=== PATIENT | male | born 1950 | race Caucasian/White ===

== ENCOUNTER → 2021-01-11 12:38 | Outpatient (BNVA) | payer MEDICARE, SELFPAY | PROVIDERS: Visit Provider Orthopaedic Surgery | DX: M17.11 Unilateral primary osteoarthritis, right knee (principal) | CPT/HCPCS: 99212 ==

== ENCOUNTER 2021-01-17 06:11 | Inpatient (IN) | payer MEDICARE, SELFPAY ==
[2021-01-11 14:10] VITALS: BP 147/73; PULSE 52; RESP 20; O2SAT 98; BMI 24.3
[2021-01-12 09:34] LABS: MRSA Nasal PCR NEGATIVE (Negative); SA Nasal PCR NEGATIVE (Negative)
--- NOTE | 2021-01-16 09:59 | P.CONAN_ITS ---
Documented by User: Natividad Carbajal 01/16/21 10:02 HPI - Anesthesia Eval Consult details Narrative: 70yo M for Left Knee Replacement Total PCP cleared [facility] Active Problems Active Problems: All Active Problems (Updated 01/11/21 @ 17:33 by Bentley Washington PA-C) Osteoarthritis of right knee (Acute) Past Medical History Medical History History of fracture of rib HTN (hypertension) Hyperlipidemia Tick bite Surgical History Surgical History History of bronchoscopy History of recent maxillofacial surgery History of right inguinal hernia repair Hx of colonoscopy Social History Social History Household Members Other:: Mother - Age 90 Are you a primary physician primary care sports medicine to a significant other at home: No Do you presently have visiting nurse or other home services: No Smoking Status: Former smoker Smoking Quit Date: 8 yrs ago Use of substances other than those prescribed or required for medical reasons: No Have you been hit, kicked, punched, or otherwise hurt by someone within the past year? If so, by whom?: No Advance Directives: No Advance Directives Information Provided: No Advance Directives on File: No Recently lost weight without trying: No Meds Allergies Allergy/AdvReac Type Severity Reaction Status Date / Time No Known Allergies Allergy Verified 01/11/21 07:38 Home Medications Medication Instructions Recorded Confirmed Last Taken Type atorvastatin 0.5 tab PO BEDTIME 01/11/21 01/11/21 01/16/21 History lisinopril 10 See Rx Instructions PO BEDTIME 01/11/21 01/11/21 01/16/21 History mg-hydrochlorothiazide 12.5 mg tablet Exam Exam Date and Time: January 16, 2021 0959 Height,Weight and Vital Signs: Height 5 ft 9 in Weight 74.843 kg Last Vital Signs Pulse 52 01/11/21 14:10 Resp 20 01/11/21 14:10 BP 147/73 H 01/11/21 14:10 Pulse Ox 98 01/11/21 14:10 Pertinent Lab Results Pertinent Lab Results: Laboratory Tests 01/11/21 Unknown Nasal Screen MRSA (PCR) NEGATIVE Nasal S. aureus Screen NEGATIVE Nasal MRSA/S.aureus Interp SEE NOTE 12/2020 BMP and CBC wnl per PCP clearance note Narrative Narrative: EKG 12/2020 SB @ 46, otherwise normal Assessment and Plan Assessment Anesthesia Assessment: Chart Reviewed Documented by User: Jimy Kunz MD 01/17/21 08:20 HPI - Anesthesia Eval Consult details Narrative: Episode of vasovagal epidsode with momentary LOC and hypotension. Treated with IVF. Will proceed with pretreatment with glycopyrrolate. PMFSH Past Medical History Medical History History of fracture of rib HTN (hypertension) Hyperlipidemia Tick bite Surgical History Surgical History History of bronchoscopy History of recent maxillofacial surgery History of right inguinal hernia repair Hx of colonoscopy Social History Social History Household Members Other:: Mother - Age 90 Are you a primary physician primary care sports medicine to a significant other at home: No Do you presently have visiting nurse or other home services: No Smoking Status: Former smoker Smoking Quit Date: 8 yrs ago Use of substances other than those prescribed or required for medical reasons: No Have you been hit, kicked, punched, or otherwise hurt by someone within the past year? If so, by whom?: No Advance Directives: No Advance Directives Information Provided: No Advance Directives on File: No Recently lost weight without trying: No Meds Allergies Allergy/AdvReac Type Severity Reaction Status Date / Time No Known Allergies Allergy Verified 01/11/21 07:38 Home Medications Medication Instructions Recorded Confirmed Last Taken Type atorvastatin 0.5 tab PO BEDTIME 01/11/21 01/11/21 01/16/21 History lisinopril 10 See Rx Instructions PO BEDTIME 01/11/21 01/11/21 01/16/21 History mg-hydrochlorothiazide 12.5 mg tablet Assessment and Plan Assessment Anesthesia Assessment: Anesthesia Plan Discussed, PAT Visit and Chart Reviewed Final Anesthetic Review NPO: Yes ASA Class: II Final Preanesthetic Review: No Changes in Pt Med Stat, Meds/Allgs Chart Reviewed, Consent Obtained/Reviewed and Anes Risks/Benef Reviewed Patient Risk: Low Procedure Risk: Low Anesthetic Plan Anesthetic Plan: MAC:, Spinal and Regional Block Disposition: Standard PACU
[2021-01-17] VITALS (13 sets, daily range): BP systolic 102–140; BP diastolic 49–66; PULSE 47–72; RESP 14–20; TEMP 36.1–36.8; O2SAT 97–100
--- NOTE | ~2021-01-17 | XR_ITS ---
EXAMINATION: XR KNEE, LEFT CLINICAL INFORMATION: Post knee replacement COMPARISON: Previous x-ray June 2020 TECHNIQUE: 2 views of the left knee. FINDINGS: There is a new left 3 component knee replacement in satisfactory position. No fracture or dislocation is seen. There are postoperative changes to the soft tissues. XR/XR knee LT 2V IMPRESSION: Satisfactory appearance of left knee replacement.
[2021-01-17] MEDS: Gabapentin 600 MG TABLET PO (06:39)
--- NOTE | 2021-01-17 06:55 | PC.NURSE ---
RN at bedside for patient knee prep, stated I think I m having a reaction . Patient complaints of suddenly feeling flush, blurry vision which was getting worse . This RN at beside when patient eyes dilated, HR dropped to 30 on monitor, and acutely unresponsive. HOB lowered, BP taken 92/50, patient bed trendelenburg and Anesthesia paged stat overhead. Anesthesia at bedside, patient quickly became responsive without any other interventions. Patient stated I feel much better now, its seems to have resolved. Patient A/Ox3, no pain reported. Per anesthesia, IV to be inserted and fluid bolus to be given. Event time approx 2 minutes.
[2021-01-17 06:58] LABS: COVID-19 Test Negative (Negative); IDNOW Serial# 9DD0AD1C
[2021-01-17] MEDS: Lactated Ringers 1,000 ML 100 ML IVCONT (07:00)
--- NOTE | 2021-01-17 07:20 | PC.NURSE ---
Patient evaluated at bedside by anesthesia Ze DUMONT and per anesthesia & kira lim to proceed with procedure. Patient 500 ml LR bolus completed, A/Ox3. Patient to be blocked at bedside.
--- NOTE | 2021-01-17 07:33 | MHC.SHP ---
Pre-Procedural Eval Section A The patient is an INPATIENT: No Changes since office visit: Yes Patient answered all questions; No Cold of Flu in the past 2 weeks, No New Medical Problems and No Changes in Medication The History & Physical has been completed within 30 days and I have reviewed it.: Yes Section B Chief Complaint: Total left knee arthroplasty Allergies: Allergies Allergy/AdvReac Type Severity Reaction Status Date / Time No Known Allergies Allergy Verified 01/11/21 07:38 Plan I have reviewed the history and physical and performed a pertinent physical examination on my patient. No changes have occurred unless specified.
[2021-01-17] MEDS: Dextrose 5 % and 0.45 % NaCl 1,000 ML 80 ML IVCONT ×2 (12:01→22:17)
[2021-01-17] MEDS: ceFAZolin Sodium/Dextrose,Iso 2 GM/50 ML PIGGYBACK IV (13:28)
--- NOTE | 2021-01-17 15:39 | MHC.CM.PN ---
pt lives c his mother in their home. at baseline he is very independent. he still works a job and very active in community. pt's mother who is 90 yrs old will be helping him when he returns home. the patient tells me she is a very capable helper, she will even be able to help him c transfers if needed. additionally, the pt's ex- will be helping him in the home as well, including a ride home [place]. pt has requested a ref. be made for nursing and home PT to [facility], this has been done. his PCP is Dr. Molina - out of [facility] in [place]. pt will also need an Rx for a walker at time of DC. DC plan is home c [facility] for nsg and home PT c walker Rx. cm to cont. to follow.
[2021-01-17] MEDS: oxyCODONE HCl Immed Release 5 MG TABLET PO ×2 (17:16→22:16)
--- NOTE | 2021-01-17 17:22 | PM.IMCN ---
History of Present Illness Data of Consult Service Date: 01/17/21 Requesting physician: King Pack Primary Care Provider: MD NANY Augustin Reason for consult: Medical management 70-year-old male with history of hypertension, hyperlipidemia, osteoarthritis came to the hospital for elective knee surgery. He says that as he is having left knee pain from long time at least 2 years and was very painful for him to walk and is subsequently outpatient decided to have surgery. Currently denies any shortness of breath or chest pain or fever or chills or abdominal pain or nausea vomiting or weakness or numbness. Has soreness in the left knee operation area otherwise unremarkable. Past medical history: Hypertension Hyperlipidemia Review of Systems Review of Systems: Constitutional: Complaining of mild pain in the knee, otherwise mostly comfortable. HEENT: No visual or auditory complaints Cardio: No chest pain or palpitation Respiratory: No shortness of breath or cough. GI: No nausea vomiting or abdominal pain. Neuro: No weakness or numbness Skin: No rash or erythema Psych whiteside: Pleasant and euthymic [facility] Medical History History of fracture of rib HTN (hypertension) Hyperlipidemia Tick bite Family History (Updated 01/17/21 @ 17:26 by Jeaneth Larios MD) Other HTN (hypertension) Surgical History History of bronchoscopy History of recent maxillofacial surgery History of right inguinal hernia repair Hx of colonoscopy Social History Household Members: Other Household Members Other:: mother Housing: House Are you a primary animal care assistant to a significant other at home: No Do you presently have visiting nurse or other home services: No Smoking Status: Former smoker Smoked in Last 30 Days: No Smoking Quit Date: 8 yrs ago Patient Interested in Nicotine Replacement: No Patient Given Instructions on How to Stop Smoking: No Second Hand Smoke Exposure: No Use of substances other than those prescribed or required for medical reasons: No Currently Displaying Signs/Symptoms of Drug Intoxication Withdrawal: No Any prior treatment program specific to substance use: No Have you been hit, kicked, punched, or otherwise hurt by someone within the past year? If so, by whom?: No Do you feel safe in your current relationship?: Yes Is there a partner from a previous relationship who is making you feel unsafe now?: No Are you made to feel afraid or neglected: No Advance Directives: Yes Advance Directives Information Provided: No Advance Directives on File: Yes Advance Directives Date on File: 01/17/21 Do you have thoughts of harming others: None Do you have a plan to hurt others: No Plan Recently lost weight without trying: No service: No Current occupational status: employed Meds Allergies Allergy/AdvReac Type Severity Reaction Status Date / Time No Known Allergies Allergy Verified 01/11/21 07:38 Active Medications: Current Medications Generic Name Dose Route Start Last Admin Trade Name Freq PRN Reason Stop Dose Admin Acetaminophen 650 mg 01/17/21 11:31 Acetaminophen 325 Mg Tablet PO Q6H PRN Pain, Mild (Pain Scale 1-3) Celecoxib 200 mg 01/17/21 21:00 Celecoxib 200 Mg Capsule PO BID ROMIE Docusate Sodium 100 mg 01/17/21 21:00 Docusate Sodium 100 Mg Capsule PO BID ROMIE Hydromorphone HCl 0.25 mg 01/17/21 11:31 Hydromorphone Hcl 0.5 Mg/0.5 Ml Syringe IVPUSH Q4H PRN Pain, Severe (Pain Scale 7-10) Dextrose/Sodium Chloride 1,000 mls @ 80 mls/hr 01/17/21 11:31 01/17/21 12:01 D51/2ns IVCONT 80 mls/hr .[id number] ROMIE Administration Naloxone HCl 0.2 mg 01/17/21 11:31 Naloxone Hcl 0.4 Mg/Ml Vial IVPUSH Q2M PRN Excessive sedation or RR < 8 Ondansetron HCl 4 mg 01/17/21 11:31 Ondansetron Hcl 4 Mg/2 Ml Vial IVPUSH Q8H PRN Nausea and Vomiting Oxycodone HCl 5 mg 01/17/21 11:31 01/17/21 17:16 Oxycodone Hcl Immed Release 5 Mg Tablet PO 5 mg Q4H PRN Administration Pain, Moderate (Pain Scale 4-6 Oxycodone HCl 10 mg 01/17/21 21:00 Oxycodone Hcl Er 10 Mg Tab.Er.12h PO BID ROMIE Sodium Chloride 3 ml 01/17/21 16:00 01/17/21 14:03 0.9 % Sodium Chloride Flush 3 Ml Syringe IVFLUSH Not Given QSHIFT [facility] Home Medications Medication Instructions Recorded Confirmed Last Taken Type atorvastatin 0.5 tab PO BEDTIME 01/11/21 01/11/21 01/16/21 History lisinopril 10 See Rx Instructions PO BEDTIME 01/11/21 01/11/21 01/16/21 History mg-hydrochlorothiazide 12.5 mg tablet Physical Exam Vital Signs and Narrative: Vital Signs: Last Vital Signs Temp 97.2 F 01/17/21 15:31 Pulse 68 01/17/21 15:31 Resp 18 01/17/21 15:31 BP 120/66 01/17/21 15:31 Pulse Ox 97 01/17/21 15:31 Body Mass Index 24.3 Results Labs Labs: Laboratory Results - last 24 hr 01/17/21 01/17/21 06:15 06:17 COVID-19 (CHARLIE) Negative COVID-19 Clin Com See Note Blood Type A Positive Antibody Screen NEGATIVE Imaging Radiologist's Impressions: Impressions Knee X-Ray 01/17/21 10:00 IMPRESSION: Satisfactory appearance of left knee replacement. Assessment and Plan (1) Osteoarthritis of right knee: Status: Acute 70 y/o M with htn , hyperlipidemia.knee OA . 1. Left knee OA: continue celebrax, oxycodone bowel regimen incentive selvin. 2. htn:acceptable , will start lisinopril/hctz in am. 3. Hlp: Continue atorvastatin. dvt prophylax : [facility] devices as per primary team. d/w with staff.
--- NOTE | 2021-01-17 18:20 | PC.NURSE ---
pt unable to void , pt bladder scanned for over 1000mls , pt straight cath at 1700 for 1100 mls of yellow urine . pt dtv at 2100
[2021-01-17] MEDS: HYDROmorphone HCl 0.5 MG/0.5 ML SYRINGE 0.25 MG IVPUSH (19:42)
[2021-01-17] MEDS: Celecoxib 200 MG CAPSULE PO (19:43)
[2021-01-17] MEDS: oxyCODONE HCl ER 10 MG TAB.ER.12H PO (19:43)
[2021-01-17] MEDS: Docusate Sodium 100 MG CAPSULE PO (19:43)
[2021-01-17] MEDS: Acetaminophen 325 MG TABLET 650 MG PO (22:15)
[2021-01-17] MEDS: 0.9 % Sodium Chloride Flush 3 ML SYRINGE IVFLUSH (22:16)
[2021-01-18 03:00] VITALS: BP 108/53; PULSE 59; RESP 18; TEMP 36.2; O2SAT 99
[2021-01-18 06:26] LABS: Hematocrit 35.7 % (42-52); Hemoglobin 11.6 g/dl (14.0-18.0)
[2021-01-18 07:00] VITALS: BP 116/67; PULSE 58; RESP 18; TEMP 36.3; O2SAT 98
[2021-01-18 07:07] LABS: Anion Gap 10 (12-20); Blood Urea Nitrogen 22 mg/dL (9-16); Calcium 8.3 mg/dL (8.4-10.2); Carbon Dioxide 24 mmol/L (22-29); Chloride 109 mmol/L (96-108); Creatinine Clr Calc Pharmacy 88.2; Estimated Glomerular Filt Rate > 60; Glucose Fasting 136 mg/dL (60-99); Potassium 4.2 mmol/L (3.3-5.1); Sodium 139 mmol/L (135-145)
[2021-01-18] MEDS: oxyCODONE HCl ER 10 MG TAB.ER.12H PO ×2 (08:28→19:52)
[2021-01-18] MEDS: Docusate Sodium 100 MG CAPSULE PO ×2 (08:28→19:52)
[2021-01-18] MEDS: Celecoxib 200 MG CAPSULE PO ×2 (08:28→19:51)
--- NOTE | 2021-01-18 08:35 | PM.PNORT ---
Subjective Subjective Date of Service: 01/18/21 Interval history: POD: s/p LT TKA No overnight events Patient is: Resting in bed, has been out of bed with PT yesterday ambulating Admits: mild pain, block still active Denies:CP, SOB, palpitations Physical Exam Vital Signs: Vital Signs: Last Vital Signs Temp 97.3 F 01/18/21 07:00 Pulse 58 01/18/21 07:00 Resp 18 01/18/21 07:00 BP 116/67 01/18/21 07:00 Pulse Ox 98 01/18/21 07:00 Body Mass Index 24.3 Const: General: cooperative, healthy appearing and no acute distress Resp: Effort & Inspection: normal respiratory effort and able to speak in complete sentences Cardio: Rate: regular rate Peripheral pulses: Peripheral pulses 2+ throughout GI: Palpation (GI): Soft to palpation Skin: General skin exam: no rashes or lesions noted Extrem: Other: Left knee bandage clean, dry and intact. No erythema, mild edema, sensation intact. Progress Note: A&P Assessment and plan (1) Status post total left knee replacement: Status: Acute Assessment and Plan: Continue pain mgmnt Begin asa for dvt ppx begin PT for LT TKA Dispo planning-Pending PT eval, pain mgmnt Fall Risk Details Current Medications: Current Medications Generic Name Dose Route Start Last Admin Trade Name Freq PRN Reason Stop Dose Admin Acetaminophen 650 mg 01/17/21 11:31 01/17/21 22:15 Acetaminophen 325 Mg Tablet PO 650 mg Q6H PRN Administration Pain, Mild (Pain Scale 1-3) Celecoxib 200 mg 01/17/21 21:00 01/18/21 08:28 Celecoxib 200 Mg Capsule PO 200 mg BID ROMIE Administration Docusate Sodium 100 mg 01/17/21 21:00 01/18/21 08:28 Docusate Sodium 100 Mg Capsule PO 100 mg BID ROMIE Administration Hydromorphone HCl 0.25 mg 01/17/21 11:01/17/21 19:42 Hydromorphone Hcl 0.5 Mg/0.5 Ml Syringe IVPUSH 0.25 mg Q4H PRN Administration Pain, Severe (Pain Scale 7-10) Dextrose/Sodium Chloride 1,000 mls @ 80 mls/hr 01/17/21 11:31 01/17/21 22:17 D51/2ns IVCONT 80 mls/hr .[id number] ROMIE Administration Naloxone HCl 0.2 mg 01/17/21 11:31 Naloxone Hcl 0.4 Mg/Ml Vial IVPUSH Q2M PRN Excessive sedation or RR < 8 Ondansetron HCl 4 mg 01/17/21 11:31 Ondansetron Hcl 4 Mg/2 Ml Vial IVPUSH Q8H PRN Nausea and Vomiting Oxycodone HCl 5 mg 01/17/21 11:31 01/17/21 22:16 Oxycodone Hcl Immed Release 5 Mg Tablet PO 5 mg Q4H PRN Administration Pain, Moderate (Pain Scale 4-6 Oxycodone HCl 10 mg 01/17/21 21:00 01/18/21 08:28 Oxycodone Hcl Er 10 Mg Tab.Er.12h PO 10 mg BID ROMIE Administration Sodium Chloride 3 ml 01/17/21 16:00 01/18/21 07:15 0.9 % Sodium Chloride Flush 3 Ml Syringe IVFLUSH Not Given QSHIFT ROMIE Time Spent With Patient Time: Total time spent is greater than 50% in coordination of care (as documented) at patient's floor/unit and/or counseling patient: Time with patient: less than 15 minutes
[2021-01-18] MEDS: Aspirin 325 MG TABLET PO ×2 (10:08→19:51)
[2021-01-18] MEDS: Dextrose 5 % and 0.45 % NaCl 1,000 ML 80 ML IVCONT ×2 (10:18→22:22)
[2021-01-18 11:00] VITALS: BP 115/58; PULSE 56; RESP 19; TEMP 36.6; O2SAT 99
--- NOTE | 2021-01-18 13:10 | HO.POSTANES ---
Post Anesthesia Evaluation Post Anesthesia Evaluation Vital Signs: Vital Signs Temp Pulse Resp BP Pulse Ox 01/18/21 11:00 97.8 F 56 19 115/58 L 99 01/18/21 07:00 97.3 F 58 18 116/67 98 01/18/21 03:00 97.1 F 59 18 108/53 L 99 Anesthesia: Spinal and Nerve Block Mental Status: Awake Pain Control: Satisfactory Nausea/Vomiting: None Hydration: Adequate Anesthesia-Related Issues: No Anes. Related Issues
--- NOTE | 2021-01-18 13:40 | P.PNIM_ITS ---
Subjective Subjective Date of Service: 01/18/21 Interval History: knee pain Cardiovascular Cardiovascular: Reports no additional cardiovascular complaints Genitourinary Genitourinary: Reports no additional male genitourinary complaints Physical Exam Vital Signs: Vital Signs: Last Vital Signs Temp 97.8 F 01/18/21 11:00 Pulse 56 01/18/21 11:00 Resp 19 01/18/21 11:00 BP 115/58 L 01/18/21 11:00 Pulse Ox 99 01/18/21 11:00 Body Mass Index 24.3 General: AO X 3, no acute distress Resp: CTA bilateral CVS: S1,S2,RRR GI: soft, non tender, non distended Neuro: motor grossly intact Psych: appropriate affect Objective Data Current Medications Generic Name Dose Route Start Last Admin Trade Name Freq PRN Reason Stop Dose Admin Acetaminophen 650 mg 01/17/21 11:31 01/17/21 22:15 Acetaminophen 325 Mg Tablet PO 650 mg Q6H PRN Administration Pain, Mild (Pain Scale 1-3) Aspirin 325 mg 01/18/21 09:00 01/18/21 10:08 Aspirin 325 Mg Tablet PO 325 mg BID ROMIE Administration Celecoxib 200 mg 01/17/21 21:00 01/18/21 08:28 Celecoxib 200 Mg Capsule PO 200 mg BID ROMIE Administration Docusate Sodium 100 mg 01/17/21 21:00 01/18/21 08:28 Docusate Sodium 100 Mg Capsule PO 100 mg BID ROMIE Administration Hydromorphone HCl 0.25 mg 01/17/21 11:31 01/17/21 19:42 Hydromorphone Hcl 0.5 Mg/0.5 Ml Syringe IVPUSH 0.25 mg Q4H PRN Administration Pain, Severe (Pain Scale 7-10) Dextrose/Sodium Chloride 1,000 mls @ 80 mls/hr 01/17/21 11:31 01/18/21 11:31 D51/2ns IVCONT Not Given .[id number] ROMIE Naloxone HCl 0.2 mg 01/17/21 11:31 Naloxone Hcl 0.4 Mg/Ml Vial IVPUSH Q2M PRN Excessive sedation or RR < 8 Ondansetron HCl 4 mg 01/17/21 11:31 Ondansetron Hcl 4 Mg/2 Ml Vial IVPUSH Q8H PRN Nausea and Vomiting Oxycodone HCl 5 mg 01/17/21 11:31 01/17/21 22:16 Oxycodone Hcl Immed Release 5 Mg Tablet PO 5 mg Q4H PRN Administration Pain, Moderate (Pain Scale 4-6 Oxycodone HCl 10 mg 01/17/21 21:00 01/18/21 08:28 Oxycodone Hcl Er 10 Mg Tab.Er.12h PO 10 mg BID ROMIE Administration Sodium Chloride 3 ml 01/17/21 16:00 01/18/21 07:15 0.9 % Sodium Chloride Flush 3 Ml Syringe IVFLUSH Not Given QSHIFT [facility] Labs CBC & Chem 7: 01/18/21 06:02 01/18/21 06:02 Assessment and Plan (1) Status post total left knee replacement: Status: Acute Assessment and Plan: 70 y/o M with htn , hyperlipidemia.knee OA . Left knee OA POD 1 management per ortho HTN BP on low side, continue to hold lisinopril/hctz HLD statin
[2021-01-18 15:00] VITALS: BP 120/48; PULSE 60; RESP 16; TEMP 36.2; O2SAT 98
--- NOTE | 2021-01-18 17:14 | PM.OP ---
Brief Operative Note Date of Service: 01/17/21 Pre-op diagnosis: left knee OA Post-op diagnosis: same Procedure: Left TKA Implants: [place] [employer] 02/22/12cr/38a Surgeon: King Pack MD Anesthesia: regional and local Veterinary Poultry Inspector: Meean Hilario Estimated blood loss (mL): 150 IV fluids (mL): 1,000 Pathology: other Condition: stable Disposition: PACU
--- NOTE | 2021-01-18 17:18 | W.PM.OPN ---
Operative Note Operative Note Date of Service: 01/17/21 Narrative: Pre-op diagnosis: left knee OA Post-op diagnosis: same Procedure: Left TKA Implants: [place] [employer] 02/22/12cr/38a Surgeon: King Pack MD Anesthesia: regional and local Architectural Designer: Meena Hilario Estimated blood loss (mL): 150 IV fluids (mL): 1,000 Pathology: other Condition: stable Disposition: PACU Procedure in detail: Patient was brought to the operating room and prepped and draped in standard sterile fashion. A time-out was called to identify proper site proper procedure proper surgeon IV antibiotics were administered. 1 g of IV tranexamic acid was also administered. I began by making a midline incision down to the retinaculum and performed a medial parapatellar arthrotomy. The patella was translated laterally and the knee was flexed up. I performed a small medial peel and resected the infrapatellar fat pad. There was severe eburnation especially medially. Ramin's line was then used to drill my intramedullary femoral guide and my distal femur cut of 12mm (10 deg flexion contracture) was made in 5 degrees of valgus. I then measured the femur and placed my cutting guide and made my anterior posterior and chamfer cuts protecting the soft tissues at all times. Once I was happy with my cut I turned my attention to the tibia. In line with the tibial crest and with a 3 degree posterior slope I made my distal tibial cut protecting the PCL the posterior soft tissues at all times. An extension block was used to confirm appropriate amount of bony resection. I then sized the tibia and once I was happy that there was good tibial coverage I placed my trial and with the trial femur in place took the knee through range of motion with a 12 mm insert. I was happy with the extension and flexion as well as the stability at 00:30 and 90 degrees. I then turned my attention to the patella where I removed 1 cm from the undersurface of the patella and then trialed a patellar button of appropriate dimensions. Again the knee was taken through range of motion I was happy with the tracking. I then returned to the femur and drilled my femoral lug holes and prepared the tibia. Femoral bone plug was then placed and the knee was irrigated copiously. I then press fit the patella, tibia and femur in standard fashion. I trialed different inserts until I was satisfied with a 12 CR. I then placed the final insert and performed a 3 minutes iodine soak with local TXA. The knee was then closed with a running Quill suture, a 3 0 Vicryl and carmel on the skin. Patient was then placed in sterile dressing and brought to recovery room in stable condition there were no known complications.
[2021-01-18 19:00] VITALS: BP 130/61; PULSE 57; RESP 16; TEMP 36.7; O2SAT 99
[2021-01-18] MEDS: Atorvastatin Calcium 10 MG TABLET PO (19:51)
[2021-01-18] MEDS: oxyCODONE HCl Immed Release 5 MG TABLET PO (19:52)
[2021-01-18] MEDS: Acetaminophen 325 MG TABLET 650 MG PO (19:55)
[2021-01-18] MEDS: HYDROmorphone HCl 0.5 MG/0.5 ML SYRINGE 0.25 MG IVPUSH (22:21)
[2021-01-18 23:24] VITALS: BP 144/64; PULSE 72; RESP 18; TEMP 37; O2SAT 97
[2021-01-19] MEDS: oxyCODONE HCl Immed Release 5 MG TABLET PO ×2 (00:01→09:58)
[2021-01-19 03:00] VITALS: BP 138/54; PULSE 60; RESP 16; TEMP 36.5; O2SAT 98
[2021-01-19 06:49] LABS: Hematocrit 33.2 % (42-52); Hemoglobin 10.5 g/dl (14.0-18.0)
[2021-01-19 07:00] VITALS: BP 134/67; PULSE 57; RESP 18; TEMP 36.4; O2SAT 99
[2021-01-19 07:31] LABS: Anion Gap 9 (12-20); Blood Urea Nitrogen 20 mg/dL (9-16); Calcium 8.1 mg/dL (8.4-10.2); Carbon Dioxide 25 mmol/L (22-29); Chloride 110 mmol/L (96-108); Creatinine Clr Calc Pharmacy 91.7; Estimated Glomerular Filt Rate > 60; Glucose Fasting 104 mg/dL (60-99); Potassium 4.3 mmol/L (3.3-5.1); Sodium 140 mmol/L (135-145)
--- NOTE | 2021-01-19 09:25 | P.DS_ITS ---
DS: Providers Provider Date of Service: 01/22/21 Date of admission: 01/17/21 06:11 Primary care physician: Mitchell Molina MD Consults: 01/17/21 11:31 Consult to Hospitalist Routine Consulting Provider: Hospitalist Reason For Exam: Medical management s/p LT TKA DS: Diagnosis Discharge Diagnosis (1) Status post total left knee replacement: Status: Acute Problem details: Mr Beach is a 70 yo gentleman who presented to the office for ongoing left knee pain. He continued to have ongoing pain and difficulty with daily activities, he failed conservative treatment ; therefore, he consented to move forward with LT TKA. DS: Medications Discharge Medications Home Medications: Home Medications Medication Instructions Recorded Confirmed atorvastatin 0.5 tab PO BEDTIME 01/11/21 01/11/21 lisinopril 10 See Rx Instructions PO BEDTIME 01/11/21 01/11/21 mg-hydrochlorothiazide 12.5 mg tablet Previous Rx's Medication Instructions Recorded walker #1 ea 01/18/21 acetaminophen 650 mg PO Q6H PRN 30 Days #240 tab 01/19/21 aspirin 325 mg PO BID 50 Days #100 tab 01/19/21 docusate sodium 100 mg PO BID 14 Days #28 cap 01/19/21 oxycodone 5 mg PO Q4H PRN 7 Days #42 tab 01/19/21 DS: Summary Hospital Course Hospital Course: The patient underwent a successful LT TKA, was transferred to PACU and then to the floor to recover. During their stay, their vitals were stable, afebrile at 97.6. Labs were unremarkable, H/H10.5/33.2. POD 1 he was started on ASA for DVT ppx,he also received phyiscal therapy services twice a day. Prior to discharge, their dressing was change, incision clean dry and intact, new Aquacel dressing applied and the plan was to be discharged home with VNA services,. Time Spent with Patient Time attestation: Total time spent providing and/or coordinating discharge services: Discharge coordination time: Less than 30 minutes Physical Exam Vital Signs: Vital Signs: Last Vital Signs Temp 97.6 F 01/19/21 07:00 Pulse 57 01/19/21 07:00 Resp 18 01/19/21 07:00 BP 134/67 01/19/21 07:00 Pulse Ox 99 01/19/21 07:00 Body Mass Index 24.3 Const: General: cooperative, healthy appearing and no acute distress Resp: Effort & Inspection: normal respiratory effort and able to speak in complete sentences Cardio: Rate: regular rate Peripheral pulses: Peripheral pulses 2+ throughout GI: Palpation (GI): Soft to palpation Skin: General skin exam: no rashes or lesions noted Extrem: Other: Left knee incision clean, dry and intact . No erythema, mild edema , Sensation intact . DS: Data Data Completed and Pending Completed studies during hospitalization [Text1]: Pending at discharge 01/17/21 08:58 Surgical [PTH] Routine Labs on day of discharge: Laboratory Results - last 24 hr 01/19/21 01/19/21 06:11 06:11 Hgb 10.5 L Hct 33.2 L Sodium 140 Potassium 4.3 Chloride 110 H Carbon Dioxide 25 Anion Gap 9 L BUN 20 H Creatinine 0.76 Estim Creat Clear Calc 91.7 Estimated GFR > 60 Fasting Glucose 104 H Calcium 8.1 L Discharge Plan Discharge Patient Disposition: Home Health Service Referrals: King Pack MD [Physician] - (02/01/21 2:15 [facility] [place] [facility] ) Discharge Medications: New acetaminophen 325 mg Tablet 650 mg PO Q6H PRN (Reason: Pain, Mild (Pain Scale 1-3)) 30 Days Qty: 240 RF: 0 aspirin 325 mg Tablet 325 mg PO BID 50 Days Qty: 100 RF: 0 docusate sodium 100 mg Capsule 100 mg PO BID 14 Days Qty: 28 RF: 0 oxycodone 5 mg Tablet 5 mg PO Q4H PRN (Reason: Pain, Moderate (Pain Scale 4-6) 7 Days Qty: 42 RF: 0 Continued (DME) walker Misc See Rx Instructions .MEDSUPPLY Qty: 1 RF: 0 atorvastatin 20 mg tablet 0.5 tab PO BEDTIME RF: 0 lisinopril-hydrochlorothiazide 10-12.5 mg tablet See Rx Instructions PO BEDTIME RF: 0 Discharge Orders: Discharge Order (Routine); Ordered 01/19/21 Ordered By: Bentley Washington Diet: regular diet Activity on Discharge: Use cane or walker Stand Alone Forms: Patient Portal Discharge page Activity Restrictions/Additional Instructions: * Physical Therapy for ROM 0-120, quad strength, gait training . Use walker for ambulation * Limit stair climbing, No shower, No tub bath, No driving * Continue anticoagulant * Keep Aquacel dressing clean, dry and intact. * Follow up with orthopedics in 2 weeks Care Plan Goals: Restore function of right knee Health Concerns: None Plan of Treatment: Physical Therapy Pain management DVT prophylaxis Discharge Date/Time: 01/19/21 12:48
[2021-01-19] MEDS: Celecoxib 200 MG CAPSULE PO (09:58)
[2021-01-19] MEDS: oxyCODONE HCl ER 10 MG TAB.ER.12H PO (09:59)
[2021-01-19] MEDS: Docusate Sodium 100 MG CAPSULE PO (09:59)
[2021-01-19] MEDS: Aspirin 325 MG TABLET PO (09:59)
--- NOTE | 2021-01-19 10:25 | W.MHC.F2F ---
Service Date Service Date: 01/19/21 Reasons for Services Reason for physical therapy: home safety and mobility, therapeutic exercises, restore joint function and gait/transfer training Reason for occupational therapy: home safety and mobility, therapeutic exercises, restore joint function and gait/transfer training Overseeing Care: King Pack Homebound: Leaving the home is medically contraindicated at this time without the asist of a device and/or another person due th the listed conditions above and below. Reason homebound: pain with ambulation, poor balance / fall risk and unable to drive Homebound supporting statement: Pt. is considered home bound due to recent surgery. Unable to drive, poor balance, poor gait mechanics. Certification: Based on the above findings, I certify that this patient is confined to the home and needs intermittent alf care, physical therapy and/or speech therapy, or continues to need occupational therapy. The patient is under my care, and I have initiated the establishment of the plan of care. The patient will be followed by a physician who will periodically review the plan of care.
--- NOTE | 2021-01-19 11:03 | HO.PM.IMPN ---
Subjective Subjective Date of Service: 01/19/21 Interval History: pain about a 3 Cardiovascular Cardiovascular: Reports no additional cardiovascular complaints Gastrointestinal Gastrointestinal: Reports no additional gastrointestinal complaints Physical Exam Vital Signs: Vital Signs: Last Vital Signs Temp 97.6 F 01/19/21 07:00 Pulse 57 01/19/21 07:00 Resp 18 01/19/21 07:00 BP 134/67 01/19/21 07:00 Pulse Ox 99 01/19/21 07:00 Body Mass Index 24.3 General: AO X 3, no acute distress Resp: CTA bilateral CVS: S1,S2,RRR GI: soft, non tender, non distended Neuro: motor grossly intact Psych: appropriate affect Objective Data Current Medications Generic Name Dose Route Start Last Admin Trade Name Freq PRN Reason Stop Dose Admin Acetaminophen 650 mg 01/17/21 11:31 01/18/21 19:55 Acetaminophen 325 Mg Tablet PO 650 mg Q6H PRN Administration Pain, Mild (Pain Scale 1-3) Aspirin 325 mg 01/18/21 09:00 01/19/21 09:59 Aspirin 325 Mg Tablet PO 325 mg BID ROMIE Administration Atorvastatin Calcium 10 mg 01/18/21 21:00 01/18/21 19:51 Atorvastatin Calcium 10 Mg Tablet PO 10 mg BEDTIME ROMIE Administration Celecoxib 200 mg 01/17/21 21:00 01/19/21 09:58 Celecoxib 200 Mg Capsule PO 200 mg BID ROMIE Administration Docusate Sodium 100 mg 01/17/21 21:00 01/19/21 09:59 Docusate Sodium 100 Mg Capsule PO 100 mg BID ROMIE Administration Hydromorphone HCl 0.25 mg 01/17/21 11:31 01/18/21 22:21 Hydromorphone Hcl 0.5 Mg/0.5 Ml Syringe IVPUSH 0.25 mg Q4H PRN Administration Pain, Severe (Pain Scale 7-10) Dextrose/Sodium Chloride 1,000 mls @ 80 mls/hr 01/17/21 11:31 01/19/21 10:00 D51/2ns IVCONT 0 mls/hr .[id number] ROMIE Infusion Naloxone HCl 0.2 mg 01/17/21 11:31 Naloxone Hcl 0.4 Mg/Ml Vial IVPUSH Q2M PRN Excessive sedation or RR < 8 Ondansetron HCl 4 mg 01/17/21 11:31 Ondansetron Hcl 4 Mg/2 Ml Vial IVPUSH Q8H PRN Nausea and Vomiting Oxycodone HCl 5 mg 01/17/21 11:31 01/19/21 09:58 Oxycodone Hcl Immed Release 5 Mg Tablet PO 5 mg Q4H PRN Administration Pain, Moderate (Pain Scale 4-6 Oxycodone HCl 10 mg 01/17/21 21:00 01/19/21 09:59 Oxycodone Hcl Er 10 Mg Tab.Er.12h PO 10 mg BID ROMIE Administration Sodium Chloride 3 ml 01/17/21 16:00 01/19/21 09:59 0.9 % Sodium Chloride Flush 3 Ml Syringe IVFLUSH Not Given QSHIFT ROMIE Labs CBC & Chem 7: 01/19/21 06:11 01/19/21 06:11 Assessment and Plan (1) Status post total left knee replacement: Status: Acute Assessment and Plan: 70 y/o M with htn , hyperlipidemia.knee OA . Left knee OA POD 2 management per ortho HTN relative hypotension resolved, can restart home bp meds HLD statin
[2021-01-19 11:36] VITALS: BP 134/67; PULSE 57; O2SAT 99
--- NOTE | 2021-01-19 14:27 | MHC.CM.PN ---
NURSE CARE MANAGEMENT NOTE ELECTRONIC MEDICAL RECORD REVIEWED ALONG WITH CASE DISCUSSED WITH STAFF NURSE AND COMMUNICATIONS WITH ORTHOPEDIC SURGICAL PQ . SENT DISCHARGE PAPERWORKS TO [facility] VIA ALLS SCRIPT THEY CALLED BACK AND SAID THEY WERE SORRY THAT THEY \DID NOT CHECK TO SEE WHERE THE REFERRAL WAS FROM , THEY ARE CLOSED TO ANY OUTSIDE FACILITIES OTHER THAN [facility] PATIENTS AT THIS TIME . I TRIED THE FOLLOWING VNA AGENCIES: [facility] (THEY DO TAKE HIS INSURANCE BUT DO NOT HAVE ANY PHYSICAL THEAPRIST TO GO TO [place] , [facility], [facility], [facility] ,[facility], [facility], [place] ,[facility] [place] [facility], [facility], [facility]TERNAT[facility], [facility] ,[facility], [facility] I HAVE BEEN IN CONTACT VIA [employer] TEXT MESSAGING WITH ORTHOPEDIC SURGICAL PA I EXPLAINED THE MANY REFERRALS I HAD MADE WELL CO BRAD ASSISTANCE WITH CONTACTING [facility] BILINGUAL RECRUITER TO SEE IF SHE COULD ASSIST US ALL ATTEMPTS WERE UNSUCCESSFUL IN SECURING A VISITING NURSE TO PROVIDE HOME PHYSICAL THERAPY SERVICE TO THIS PATIENT AT ABOUT 2;30 I CALLED TO THE ORTHOPEDIC OFF AND WAS TOLD THAT BOTH PA SANTY GONE FOR THE DAY , HOWEVER THE PA SAMMI IN LEAD PRESSER AND I TIGERED HER THE OFFICE WILL HAVE TO CALL PATIENT ON FRIDAY AND SEE IF THEY CAN ARRANGE ALTERNATE PLAN ICE I Called to patient [phone] to inform him that i was unsuccessful in attempt to secure a vna for home physical therapy. he reported he will continue with his exercise that was given to him from our physical therapy ad to call the orthopedic surgeons office on friday , and if he has any concerns to also call on the weekend and the answering service can get someone to talke with CASE DISCUSSED WITH ACCELERATOR OPERATOR THIS CASE
--- NOTE | 2021-01-22 08:48 | MHC.CM.PN ---
NURSE BIRD TENDER NOTE POST DISCHARGE 01/19/21 NOTE I CONTACTED [facility] PHONE [phone] /FAX [phone] [id number] I SPOKE WITH MAYA VILLEDA CHEXKED AND SAID THEY DO PROVIDE SERVICES TO THE [facility] AREA AND THEY DO TAKE TUST. [facility] MEDICARE INSURANCE I EXPLAINED THE PATIENT WAS DISCHARGED AND THEY WOULD NEED TO GET ORDERS FROM THE SURGEON DR MART ESTRADA OFFICE /JALEEL MAN (SCRIPT, REFERRAL, AND TREATMENT PLAN THEY WILL CALL PATIENT AFTER THEEY HAVE THE NECESSARY PAPERWORK FROM THE ORTHOPEDIC SURGEONS OFFICE PATIENT AWARE THAT I WOULD TRY AGAIN TODAY WELL \THE ORTHOPEDIC SURGICAL OFFICE. I CALLED AND LEFT A MESSAGE FOR HIM TO CALL ME BACK AND INFORM HIM THAT HE WILL HAVE HOME PHYSICAL THERAPY SERVICES , MAGY TEXT TO [facility] PA AND SPOKE WITH ORTHOPEDIC NURSE NAVIGATOR SHE WILL HAVE THE OFFICE FAX OVER NEEDED PAPERWORK TO [facility]
== END 2021-01-19 12:48 | disposition home health service (06) | DRG 470 ==
LOC: HO.SSSA 06:12 → HO.S3 10:32
PROVIDERS: Physician Assistant; Admitting Provider Orthopaedic Surgery; PCP Internal Medicine; Visit Provider Orthopaedic Surgery
PROC: 0SRD0JA Replacement of Left Knee Joint with Synthetic Substitute, Uncemented, Open Approach (ICD-10-PCS; CPT 27447; principal; 2021-01-17 07:30)
DX: M17.12 Unilateral primary osteoarthritis, left knee (principal); E78.5 Hyperlipidemia, unspecified; I10 Essential (primary) hypertension; Z79.899 Other long term (current) drug therapy
CPT/HCPCS: 36415; 73560; 80048; 85014; 85018; 86850; 86900; 87635; 87640; 87641; 88305; 88311; 97110; 97116; 97162; 97530; C1776; J0690; J1100; J1170; J2250

== ENCOUNTER → 2021-02-01 14:14 | Outpatient (BNVA) | payer MEDICARE, SELFPAY | PROVIDERS: Visit Provider Physician Assistant | DX: Z47.1 Aftercare following joint replacement surgery (principal); Z96.652 Presence of left artificial knee joint | CPT/HCPCS: 99212 ==

== ENCOUNTER 2021-03-05 08:03 | Outpatient (REF) | payer MEDICARE, SELFPAY ==
--- NOTE | ~2021-03-05 | XR_ITS ---
EXAMINATION: KNEE X-RAY CLINICAL INFORMATION: Post knee replacement COMPARISON: Previous x-rays most recent December 2020 TECHNIQUE: Standing AP view of both knees and lateral and sunrise view of the left knee FINDINGS: Left: There is a left 3 component knee replacement in satisfactory position. No fracture, dislocation or x-ray evidence of loosening is seen. There is a joint effusion. Standing AP view of the right knee demonstrates joint space narrowing and osteophyte formation medial femoral tibial joint. XR/XR knee LT 2V IMPRESSION: Left: Satisfactory position of knee replacement. 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
--- NOTE | ~2021-03-05 | XR_ITS ---
EXAMINATION: KNEE X-RAY CLINICAL INFORMATION: Post knee replacement COMPARISON: Previous x-rays most recent December 2020 TECHNIQUE: Standing AP view of both knees and lateral and sunrise view of the left knee FINDINGS: Left: There is a left 3 component knee replacement in satisfactory position. No fracture, dislocation or x-ray evidence of loosening is seen. There is a joint effusion. Standing AP view of the right knee demonstrates joint space narrowing and osteophyte formation medial femoral tibial joint. XR/XR knee standing BI IMPRESSION: Left: Satisfactory position of knee replacement. 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
== END 2021-03-05 08:04 | disposition home or self-care (01) ==
LOC: HO.HOSX 08:03
PROVIDERS: Visit Provider Orthopaedic Surgery
DX: Z13.89 Encounter for screening for other disorder (principal)

== ENCOUNTER 2021-03-08 08:12 | Outpatient (REF) | payer MEDICARE, SELFPAY | END 2021-03-08 08:13 | disposition home or self-care (01) | LOC: HO.HOSX 08:12 | PROVIDERS: Visit Provider Orthopaedic Surgery | DX: Z47.1 Aftercare following joint replacement surgery (principal); Z96.652 Presence of left artificial knee joint | CPT/HCPCS: 73560; 73565; 99212 ==